=== PATIENT | male | born 1990 | race African-American/Black ===

== ENCOUNTER 2017-11-03 09:56 | Emergency (ER) | payer SELFPAY ==
--- NOTE | 2017-11-03 10:16 | ER Document Report ---
HPI - HPI Patient complains to provider of: Left knee pain Onset: Other - Friday Pain Level: 2 Context: 27-year-old male was repairing a roof in his left leg fell into the whole to his proximal lower leg. He is complaining of knee pain the swelling is gone down but he cannot completely extend it because it hurts over the patella and the medial left knee. Associated Symptoms: None Exacerbated by: Movement - Trying to straighten it completely Relieved by: Denies Similar symptoms previously: No Recently seen / treated by doctor: No - ROS ROS below otherwise negative: Yes Systems Reviewed and Negative: Yes All other systems reviewed and negative Past Medical History - General Information source: Patient - Social History Smoking Status: Never Smoker Frequency of alcohol use: None Drug Abuse: None Lives with: Family Family History: Reviewed & Not Pertinent - Medical History Medical History: Negative Surgical Hx: Negative Vertical Provider Document - CONSTITUTIONAL Agree With Documented VS: Yes Exam Limitations: No Limitations - INFECTION CONTROL TRAVEL OUTSIDE OF THE [place] IN LAST 30 DAYS: No - MUSCULOSKELETAL/EXTREMETIES Musculoskeletal/Extremeties: Tender, No Edema Notes: No knee effusion, mild tender medial left knee and over the patella. The patellar tendon is intact. He cannot extend fully due to pain in the medial knee. 2+ DP - NEURO Level of Consciousness: Alert Motor/Sensory: No Motor Deficit, No Sensory Deficit Course - Re-evaluation Re-evalutation: 11/03/17 12:03 X-rays negative rad , offered the patient a knee immobilizer 11/03/17 12:08 Patient does not want a knee immobilizer he has one at home. he understands the x-ray is negative and will follow-up if needed - Vital Signs Vital signs: Temp Pulse Resp BP Pulse Ox 98.6 F 87 16 133/79 H 98 11/03/17 10:00 11/03/17 10:00 11/03/17 10:00 11/03/17 10:00 11/03/17 10:00 Discharge - Discharge Clinical Impression: Left knee injury Condition: Good Disposition: HOME, SELF-CARE Instructions: Acetaminophen, Ibuprofen (General) ([facility]), Knee Immobilizing Splint ([facility]), Sprained Knee ([facility]) Additional Instructions: Knee immobilizer for a week See orthopedist if the knee is to be a problem I have given your referral Tylenol up to 4000 mg a day for pain Motrin 3=4 times a day for inflammation Prescriptions: Ibuprofen [Motrin 600 mg Tablet] 600 mg PO Q8HP PRN #30 tablet PRN Reason: Referrals: LON HERNANDEZ MD [ACTIVE STAFF] - Follow up as needed
--- NOTE | 2017-11-03 11:52 | RADIOLOGY REPORT (SQ) ---
EXAM DESCRIPTION: KNEE LEFT 4 VIEW COMPLETED DATE/TIME: 11/03/2017 11:16 am REASON FOR STUDY: injury COMPARISON: None. NUMBER OF VIEWS: Four views. TECHNIQUE: AP, lateral, and both oblique radiographic images acquired of the left knee. LIMITATIONS: None. FINDINGS: MINERALIZATION: Normal. BONES: No acute fracture or dislocation. No worrisome bone lesions. JOINT: No effusion. SOFT TISSUES: No soft tissue swelling. No radio-opaque foreign body. OTHER: No other significant finding. IMPRESSION: 1. NEGATIVE STUDY OF THE LEFT KNEE. TECHNICAL DOCUMENTATION: JOB ID: [id number] [employer]- All Rights Reserved Reading location - IP/workstation name: [email or web address]
[2017-11-03 12:14] VITALS: BP 126/81
== END 2017-11-03 12:14 | disposition home or self-care (01) ==
LOC: ER 09:56
DX: S89.92XA Unspecified injury of left lower leg, initial encounter (principal); W19.XXXA Unspecified fall, initial encounter
CPT/HCPCS: 99283

== ENCOUNTER 2017-11-21 03:18 | Emergency (ER) | payer SELFPAY ==
[2017-11-21 03:39] VITALS: BP 125/86
[2017-11-21] MEDS ORDERED: FAMOTIDINE 20 MG TABLET PO ONE (05:03)
[2017-11-21] MEDS ORDERED: PREDNISONE 20 MG TABLET PO ONE (05:03)
[2017-11-21] MEDS ORDERED: LORATADINE 10 MG TABLET PO ONE (05:04)
--- NOTE | 2017-11-21 05:04 | ER Document Report ---
ED Skin Rash/Insect Bite/Abscs - General Mode of Arrival: Ambulatory Information source: Patient TRAVEL OUTSIDE OF THE [place] IN LAST 30 DAYS: No <MILO BRANTLEY - Last Filed: 11/21/17 05:32> <JEVON LAGUERRE - Last Filed: 11/21/17 05:42> - General Chief Complaint: Hives Stated Complaint: POSSIBLE RASH Time Seen by Provider: 11/21/17 04:20 Notes: 27-year-old male who presents to the emergency department today with complaints of a rash across his back and upper arms. Patient states that he noticed the rash yesterday on his right arm initially. Patient states he thinks he might have been bitten by something but he does not know what. (MILO BRANTLEY) - Related Data Allergies/Adverse Reactions: Penicillins Allergy (Verified 11/03/17 09:56) Past Medical History - General Information source: Patient - Social History Smoking Status: Current Every Day Smoker Cigarette use (# per day): Yes Chew tobacco use (# tins/day): No Frequency of alcohol use: None Drug Abuse: None Lives with: Family Family History: Reviewed & Not Pertinent Patient has suicidal ideation: No Patient has homicidal ideation: No Renal/ Medical History: Denies: Hx Peritoneal Dialysis <MILO BRANTLEY - Last Filed: 11/21/17 05:32> Review of Systems - Review of Systems Constitutional: No symptoms reported EENT: No symptoms reported Cardiovascular: No symptoms reported Respiratory: No symptoms reported Gastrointestinal: No symptoms reported Genitourinary: No symptoms reported Male Genitourinary: No symptoms reported Musculoskeletal: No symptoms reported Skin: See HPI, Rash Hematologic/Lymphatic: No symptoms reported Neurological/Psychological: No symptoms reported -: Yes All other systems reviewed and negative <MILO BRANTLEY - Last Filed: 11/21/17 05:32> Physical Exam - Vital signs Interpretation: Normal - General General appearance: Appears well, Alert - HEENT Head: Normocephalic, Atraumatic Eyes: Normal Pupils: PERRL - Respiratory Respiratory status: No respiratory distress Chest status: Nontender Breath sounds: Normal Chest palpation: Normal - Cardiovascular Rhythm: Regular Heart sounds: Normal auscultation Murmur: No - Abdominal Inspection: Normal Distension: No distension Bowel sounds: Normal Tenderness: Nontender Organomegaly: No organomegaly - Back Back: Normal, Nontender - Extremities General upper extremity: Normal inspection, Nontender, Normal color, Normal ROM , Normal temperature General lower extremity: Normal inspection, Nontender, Normal color, Normal ROM , Normal temperature, Normal weight bearing. No: Deng's sign - Neurological Neuro grossly intact: Yes Cognition: Normal Orientation: AAOx4 [place] Coma Scale Eye Opening: Spontaneous [place] Coma Scale Verbal: Oriented [place] Coma Scale Motor: Obeys Commands [place] Coma Scale Total: 15 Speech: Normal Motor strength normal: LUE, RUE, LLE, RLE Sensory: Normal - Psychological Associated symptoms: Normal affect, Normal mood - Skin Skin Temperature: Warm Skin Moisture: Dry Skin Color: Normal Character of irregularity: Urticarial - Bilateral shoulders, back, chest <JVEON LAGUERRE - Last Filed: 11/21/17 05:42> - Vital signs Vitals: Temp Pulse Resp BP Pulse Ox 97.8 F 63 16 125/86 H 100 11/21/17 03:19 11/21/17 03:19 11/21/17 03:19 11/21/17 03:19 11/21/17 03:19 Course <MILO BRANTLEY - Last Filed: 11/21/17 05:32> <JEVON LAGUERRE - Last Filed: 11/21/17 05:42> - Re-evaluation Re-evalutation: 11/21/17 05:41 Patient is a pleasant 27-year-old male who comes in complaining of itching and a rash that is consistent with urticaria. Patient thinks he may have been bitten by something. No one else with similar symptoms. No new detergents or colognes. Patient will be given a short dose of steroids. He can take Claritin and Benadryl [id number]. Follow-up with PMD as needed. No trouble breathing. Lungs are clear. Stable for discharge. (JEVON LAGUERRE) - Vital Signs Vital signs: Temp Pulse Resp BP Pulse Ox 97.8 F 63 16 125/86 H 100 11/21/17 03:19 11/21/17 03:19 11/21/17 03:19 11/21/17 03:19 11/21/17 03:19 Discharge <MILO BRANTLEY - Last Filed: 11/21/17 05:32> <JEVON LAGUERRE - Last Filed: 11/21/17 05:42> - Discharge Clinical Impression: Urticaria Condition: Stable Disposition: HOME, SELF-CARE Instructions: Acute Urticaria ([facility]) Additional Instructions: Please take Claritin and Benadryl over the counter as needed for itching. Prescriptions: Prednisone 40 mg PO DAILY #6 tablet Forms: Return to Work Scribe Attestation: 11/21/17 05:42 I personally performed the services described in the documentation, reviewed and edited the documentation which was dictated to the scribe in my presence, and it accurately records my words and actions. (JEVON LAGUERRE) Scribe Documentation - Scribe Written by Dell:: Dell Krause, 11/21/2017 0534 acting as scribe for :: Celeste <MILO BRANTLEY - Last Filed: 11/21/17 05:32>
== END 2017-11-21 05:12 | disposition home or self-care (01) ==
LOC: ER 03:18
DX: L50.9 Urticaria, unspecified (principal); F17.210 Nicotine dependence, cigarettes, uncomplicated; Z88.0 Allergy status to penicillin
CPT/HCPCS: 99283; J7512

== ENCOUNTER 2018-09-16 22:51 | Emergency (ER) | payer SELFPAY ==
--- NOTE | 2018-09-16 23:29 | RADIOLOGY REPORT (SQ) ---
EXAM DESCRIPTION: XR HAND 3 OR MORE VIEWS COMPLETED DATE/TME: 09/16/2018 22:55 CLINICAL HISTORY: 28 years, Male, DOG BITE COMPARISON: None. NUMBER OF VIEWS: Three TECHNIQUE: Frontal, oblique, and lateral radiographs of the right hand were obtained. LIMITATIONS: None. FINDINGS: Visualized osseous structures are normal in appearance. Joint spaces are well-maintained. No acute fracture or dislocation is evident. IMPRESSION: No acute osseous anomaly. copyright 2010 [employer]- All Rights Reserved
[2018-09-16] MEDS ORDERED: CLINDAMYCIN HCL 150 MG CAPSULE PO ONE (23:52)
[2018-09-16] MEDS ORDERED: IBUPROFEN 800 MG TABLET PO ONE (23:53)
[2018-09-16] MEDS ORDERED: LIDOCAINE 1% INJ-PF (10 MG/ML) 30 ML SDV INJ ONE (23:56)
--- NOTE | 2018-09-16 23:56 | ER Document Report ---
ED Medical Screen (RME) - General Chief Complaint: Dog Bite Stated Complaint: DOG BITE RIGHT HAND Time Seen by Provider: 09/16/18 23:51 Notes: 28-year-old -[place] male coming in with dog bite right hand. He is walking his 's dog and another dog in the neighborhood approached and started barking at them. Patient ended up getting bit on his right hand. He states that he had a tetanus upon discharge from the custodial system less than 5 years ago. Has Jose Luis had x-ray per protocol. Antibiotics ordered. Dog that bit him did not appear rabid. It was wandering around the neighborhood without a collar. I have treated and performed a rapid initial assessment of this patient. A comprehensive ED assessment and evaluation of the patient, analysis of test results and completion of medical decision making process will be conducted by additional ED providers. PHYSICAL EXAMINATION: GENERAL: Well-appearing, well-nourished and in no acute distress. A&Ox4. Answers questions appropriately. LUNGS: No respiratory distress HEART: Well perfused ABDOMEN: Distended Extremities: 3 cm gash to palmar surface of right hand hypothenar eminence NEUROLOGICAL: Normal speech, normal gait. PSYCH: Normal mood, normal affect. TRAVEL OUTSIDE OF THE [place] IN LAST 30 DAYS: No - Related Data Allergies/Adverse Reactions: Penicillins Allergy (Verified 09/16/18 22:54) Past Medical History Renal/ Medical History: Denies: Hx Peritoneal Dialysis Physical Exam - Vital signs Vitals: Temp Pulse Resp BP Pulse Ox 97.9 F 86 16 126/89 H 100 09/16/18 22:56 09/16/18 22:56 09/16/18 22:56 09/16/18 22:56 09/16/18 22:56 Course - Vital Signs Vital signs: Temp Pulse Resp BP Pulse Ox 97.9 F 86 16 126/89 H 100 09/16/18 22:56 09/16/18 22:56 09/16/18 22:56 09/16/18 22:56 09/16/18 22:56
[2018-09-17] MEDS ORDERED: IBUPROFEN 800 MG TABLET ONE (04:03)
[2018-09-17] MEDS ORDERED: CLINDAMYCIN HCL 150 MG CAPSULE PO ONE (04:08)
--- NOTE | 2018-09-17 05:51 | ER Document Report ---
ED General - General Chief Complaint: Dog Bite Stated Complaint: DOG BITE RIGHT HAND Time Seen by Provider: 09/16/18 23:51 Notes: Patient presents with dog bite to the right hand mild pain and swelling with laceration which occurred about 6 hours ago. He broke up a dog fight in his neighborhood. Single laceration of the right hand. Tetanus is up-to-date. Has already received pain medication and antibiotics in triage. Denies numbness or tingling. TRAVEL OUTSIDE OF THE [place] IN LAST 30 DAYS: No - Related Data Allergies/Adverse Reactions: Penicillins Allergy (Verified 09/16/18 22:54) Past Medical History - Social History Smoking Status: Never Smoker Family History: Reviewed & Not Pertinent Renal/ Medical History: Denies: Hx Peritoneal Dialysis Review of Systems - Review of Systems Notes: REVIEW OF SYSTEMS GEN: Denies fever, chills, weight loss ENT: Denies sore throat, nasal discharge, ear pain EYES: Denies blurry vision, eye pain, discharge CV: Denies chest pain, palpitations, edema RESP: Denies cough, shortness of breath, wheezing GI: Denies abdominal pain, nausea, vomiting, diarrhea MSK: Pain SKIN: Denies rash, skin lesions LYMPH: Denies swollen glands/lymph nodes NEURO: Denies headache, focal weakness or numbness, dizziness PSYCH: Denies depression, suicidal or homicidal ideation PHYSICAL EXAMINATION General: No acute distress, well-nourished Head: Atraumatic, normocephalic ENT: Mouth normal, oropharynx moist, lips normal Eyes: Conjunctiva normal, pupils equal, lids normal Neck: No JVD, supple, no guarding Resp: No resp distress, equal chest rise GI: Nondistended, no guarding Back: No midline or CVA tenderness Ext: No deformities, no edema. Curvilinear laceration to the ulnar aspect of the palm of the right hand about 2 to 3 cm long into the subdermal tissue with no active bleeding. No foreign body visualized Skin: Well-perfused, no rash Neuro: Awake, alert. Face symmetric. Physical Exam - Vital signs Vitals: Temp Pulse Resp BP Pulse Ox 97.9 F 86 16 126/89 H 100 09/16/18 22:56 09/16/18 22:56 09/16/18 22:56 09/16/18 22:56 09/16/18 22:56 Course - Re-evaluation Re-evalutation: 09/17/18 11:48 Several hours old dog bite to the hand. Already irrigated and sterilized by ED staff, given clindamycin secondary to penicillin allergy. Tetanus up-to-date. No evidence of bony injury or foreign body on my exam. Will place antibiotic ointment, not close due to infectious risk which was explained to the patient, elected not to do rabies prophylaxis secondary to low risk, and will prescribe Clinda prophylaxis. Discharged in stable condition. I have discussed with the patient there likely diagnosis, aftercare plan, follow-up plans and my usual and customary return precautions. They verbalized understanding of this. - Vital Signs Vital signs: Temp Pulse Resp BP Pulse Ox 98.2 F 63 18 118/72 98 09/17/18 06:00 09/17/18 06:00 09/17/18 06:00 09/17/18 06:00 09/17/18 06:00 Discharge - Discharge Clinical Impression: Dog bite of right hand Condition: Good Disposition: HOME, SELF-CARE Instructions: Animal Bites ([facility]) Prescriptions: RX: Clindamycin HCl [Cleocin 150 mg Capsule] 150 mg PO Q6 #40 capsule Ondansetron HCl [Zofran 4 mg Tablet] 1 - 2 tab PO Q4H PRN #10 tablet PRN Reason: Forms: Return to Work
[2018-09-17 06:20] VITALS: BP 118/72
== END 2018-09-17 06:12 | disposition home or self-care (01) ==
LOC: ER 22:51
DX: S61.451A Open bite of right hand, initial encounter (principal); W54.0XXA Bitten by dog, initial encounter
CPT/HCPCS: 99283